=== PATIENT | male | born 1955 | race Caucasian/White ===

== ENCOUNTER 2023-05-30 18:34 | Emergency (ER) | payer OTHER ==
[2023-05-30 19:03] LABS: #Monocytes 0.2 10x3/uL (0.0-1.1); #Neutrophils 7.6 10x3/uL (1.5-8.4); %Basophils 0.3 % (0.0-2.0); %Lymphocytes 8.8 % (18.0-47.0); %Monocytes 2.7 % (0.0-10.0); Hematocrit 42.4 % (38.8-50.0); Hemoglobin 14.1 g/dL (13.5-17.5); Mean Corpuscular HGB CONC 33.3 g/dL (32.0-36.0); Mean Corpuscular Hemoglobin 27.6 pg (27.0-33.0); Mean Corpuscular Volume 83.1 fl (81.2-95.1); Mean Platelet Volume 9.1 fl (7.4-10.4); Platelet Count 278 10x3/uL (150-450); RBC Distribution Width 13.6 % (11.5-14.5); White Blood Cell (WBC) Count 8.7 10x3/uL (3.5-10.5)
[2023-05-30 19:17] LABS: ALT (SGPT) 21 U/L (8-55); AST (SGOT) 24 U/L (5-34); Albumin 4.2 g/dL (3.4-4.8); Alkaline Phosphatase 60 U/L (40-110); Anion Gap 12 mmol/L (10-20); BUN (Urea Nitrogen) 20 mg/dL (8.4-25.7); Bilirubin, Total 0.7 mg/dL (0.2-1.2); Calc. Creatinine Clearance 0 mL/min (70-130); Calcium 9.1 mg/dL (7.8-10.44); Carbon Dioxide 25 mmol/L (23-31); Chloride 107 mmol/L (98-107); Estimated GFR 98; Globulin 3.2 g/dL (2.4-3.5); Glucose 140 mg/dL (80-115); Potassium 3.8 mmol/L (3.5-5.1); Protein, Total 7.4 g/dL (5.8-8.1); Sodium 140 mmol/L (136-145)
[2023-05-30] MEDS ORDERED: Meclizine HCl 25 MG TAB ONE (19:37)
[2023-05-30] MEDS ORDERED: Ibuprofen 800 MG TAB ONE (19:38)
== END 2023-05-30 20:45 | disposition home or self-care (01) ==
LOC: CSHERS 18:34
DX: I10 Essential (primary) hypertension (principal); J01.90 Acute sinusitis, unspecified
CPT/HCPCS: 36415; 36416; 70450; 80053; 85025; 93005

== ENCOUNTER 2023-06-10 01:12 | Emergency (ER) | payer OTHER ==
[2023-06-10] MEDS ORDERED: Ketorolac Tromethamine 30 MG/ML VIAL ONE (01:53)
== END 2023-06-10 02:05 | disposition home or self-care (01) ==
LOC: CSHERS 01:12
DX: M17.12 Unilateral primary osteoarthritis, left knee (principal); I10 Essential (primary) hypertension; Z79.899 Other long term (current) drug therapy
CPT/HCPCS: 96372; 99283; J1885